=== PATIENT | female | born 1940 | race Caucasian/White ===

== ENCOUNTER 2016-10-19 19:19 | Emergency (ER) | payer MEDICARE, OTHER ==
[~2016-10-19] VITALS: Ht 167.6 cm; Wt 60.0 kg
[~2016-10-19 19:19] MED LIST: ATEN25TA PO; ESTR1PAT13 TD; GALA8TAB PO; IBUP-1827 PO; SERT20OR6 PO; [UNRECOGNIZED DRUG - CODE] PO
[2016-10-19 19:28] VITALS: BP 163/85; PULSE 67; RESP 14; O2SAT 99
--- NOTE | 2016-10-19 19:50 | ED.REPORT ---
HPI-General Illness Date of Service Oct 19, 2016 ED Provider: Dr. Fraser A demented 76 year old female with a history of Alzheimer's and HTN presents to the ED via EMS with seizure-like symptoms onset approximately 1-2 hours ago. Per son, the patient was eating salmon dinner when suddenly her head fell backward, her eyes rolled into her head, she stiffened up and began shaking. She began to fall and was caught by her son who gently lowered her to the ground. Per son, she was not confused when she woke up. She denies biting her tongue or having any incontinence or headache. Both the patient and her son deny any history of the patient having seizures. Nursing Notes Stated Complaint: POSS SEIZURE Chief Complaint: Seizure Nursing Notes Reviewed: Yes Allergies: Coded Allergies: No Known Allergies (Verified Allergy, Severe, 10/19/16) Scheduled Atenolol (Atenolol) 25 Mg Tablet 25 MG PO DAILY Cyanocobalamin (Vitamin B-12) 500 Mcg Tab 500 MCG PO BID Galantamine (Galantamine) 8 Mg Tablet 8 MG PO BID Sertraline HCl (Sertraline) 20 Mg/1 Ml Oral.conc 50 MG PO DAILY Scheduled PRN Ibuprofen (Ibuprofen) 600 Mg Tablet 600 MG PO TID PRN PRN For Pain Miscellaneous Medications Estradiol (Vivelle-Dot) 1 Each Patch.tdsw 1 EACH TD General Time Seen by MD: 19:50 Chief Complaint Seizure Hx Obtained From: Patient, Son, EMS Arrived By: Ambulance Sudden in Onset?: Yes Onset Occurred: 1 - 4 hours ago Symptom Duration: Duration unknown Severity: Current: Mild Severity: Maximum: Mild Recent Healthcare: No recent doctor visit Similar Sx Previous: No Past Medical History Past Medical History Alzheimer' disease Denies history of seizure. Reports: Hypertension Past Surgical History Reports: Appendectomy, Hysterectomy Smoking History Never Smoker Social History Alcohol Use: Denies alcohol use Review of Systems Denies incontinence. Denies biting her tongue. Full Review of Systems Constitutional: Denies: Chills, Fever Eyes: Denies: Blurred left, Blurred right Ears / Nose / Throat: Denies: Ear drainage left, Ear drainage right Respiratory: Denies: Non-productive cough Cardiovascular: Denies: Chest pain GI: Denies: Abdominal pain Female: Denies: Dysuria Skin: Denies Bruising Neurologic: Reports: Seizure, Denies: Abnormal movement, Bladder dysfunction, Bowel dysfunction, Change LOC , Headache, Slurred speech, Vision change, Weakness Psychiatric: Denies: Agitation, Change mental status Complete sys rev & neg: except as marked. Physical Exam normal exam Vital Signs Vital Signs Date Time Temp Pulse Resp B/P Pulse Ox O2 Delivery O2 Flow Rate FiO2 10/19/16 22:49 66 16 122/89 99 Room Air 10/19/16 22:03 66 16 122/89 99 Room Air 10/19/16 20:16 65 16 129/97 99 Room Air 10/19/16 19:28 36.7 67 14 163/85 99 Room Air Initial VS: Reviewed General/Constitutional: Awake, Alert Head / Eyes: Atraumatic, Normocephalic, PERRL, EOMI ENT: Atraumatic, Mucous membranes moist Respiratory / Chest: Atraumatic, Breath sounds NL, Breath sounds = bilat, No respiratory distress Cardiovascular: Heart rate NL, Regular rhythm, Heart sounds NL, No gallop, No murmurs, No rubs Abdomen: Atraumatic, No guarding, No rebound Upper Extremities Upper Extremity / MS: No swelling, No edema Skin: Atraumatic, Color NL, Warm, Dry Neurologic: Speech NL NIH stroke scale score is Zero, performed at 1950, 10/19/2016. Interpretation & Diagnostics Lab Results Interpretation Result Diagram: 10/19/16194310/19/161943 Test 10/19/16 19:44 10/19/16 21:55 White Blood Count 7.3th/mm3 (3.8-10.1) Red Blood Count 4.64mil/mm3 (3.90-5.20) Hemoglobin 13.9g/dL (12.0-15.6) Hematocrit 42.0% (35.0-46.0) Mean Corpuscular Volume 90.5fL (81-100) Mean Corpuscular Hemoglobin 30.0pg (27.0-35.0) Mean Corpuscular Hemoglobin Concent 33.1% (32.0-37.0) Red Cell Distribution Width 13.6% (12.3-15.4) Platelet Count 274bil/L (150-400) Neutrophils (%) (Auto) 69.4% (40-74) Lymphocytes (%) (Auto) 17.4% (14-46) Monocytes (%) (Auto) 9.6% (4-12) Eosinophils (%) (Auto) 2.5% (0-5) Basophils (%) (Auto) 0.8% (0-3) D-Dimer < 0.50mg/L FEU (<0.50) Sodium Level 140mEq/L (134-144) Potassium Level 3.9mEq/L (3.5-5.2) Chloride Level 101mEq/L (97-108) Carbon Dioxide Level 23mmol/L (18-29) Blood Urea Nitrogen 17mg/dL (8-27) Creatinine 1.00mg/dL (0.57-1.00) Estimat Glomerular Filtration Rate 77mL/min (>59) Glucose Level 77mg/dL (60-99) Lactic Acid Level 1.8mmol/L (0.4-2.0) Calcium Level 9.7mg/dL (8.5-10.1) Magnesium Level 2.2mg/dL (1.6-2.6) Total Bilirubin 0.3mg/dL (0.0-1.2) Aspartate Amino Transf (AST/SGOT) 19U/L (0-50) Alanine Aminotransferase (ALT/SGPT) 10U/L (0-32) Alkaline Phosphatase 68U/L (25-165) Pro-B-Type Natriuretic Peptide 250.7pg/mL (0-738) Total Protein 6.9g/dL (6.4-8.4) Albumin 4.1g/dL (3.4-5.0) Lipase 70U/L (13-60) Troponin T < 0.010ug/L (0.0-0.011) ECG Interpretation ECG Interpretation: Rate is 68. Sinus Rhythm. Time: 20:13 Interpreted by: ED physician CT Head Interpretation IMPRESSION: 1. No acute intracranial findings. 2. Mild findings likely associated with chronic microvascular ischemic changes. Dictated by: Alberta Mariano M.D. on 10/19/2016 at 20:59 Approved by: Alberta Mariano M.D. on 10/19/2016 at 21:01 Interpretation / Wet Read by: Interpret - Radiologist Re-Eval/Medical Decision Med Decision/Clinical Course Difficult to say exactly what happened. Perhaps she had a seizure and has since recovered. Syncope is also a possibility. Her examination was normal. She has dementia but beyond that had a normal neurologic exam. No signs of a stroke. Her EKG and troponins were reassuring. D-dimer is negative. CAT scan of her brain did not show anything acute. Labs are otherwise unremarkable. I recommended a hospital observation. Evidently Savannah does much better at home. Her dementia becomes an issue at nighttime and her would much rather have her at home. She also does not want to be admitted to the hospital. I do recommend close outpatient follow-up. If she has any further episodes or any new or worsening symptoms that bring her right back in. Otherwise I think she is going to do well. Source of Hx: Old records, EMS Time of Eval: 20:12 Re-Evaluation/Progress Note: Explained plan to perform blood and imaging tests. Time of Eval: 22:41 Re-Evaluation/Progress Note: Rechecked patient, explained test results, diagnosis, and plan for discharge. Patient understands and agrees with the plan. All questions addressed. Counseled Regarding: Diagnosis, Lab results, Need for follow-up, When/why to return to ED Discharge & Departure Primary Impression: Seizure Additional Impression: Syncope Syncope type: unspecified Qualified Code: R55 - Syncope and collapse Disposition: Home Patient Instructions: Non-epileptic Seizures (ED), Syncope (ED) Additional Instructions: It is difficult to say exactly what happened tonight. It certainly sounds that she could have had a seizure. She may have also had a syncopal episode as we discussed. Either way her EKG, blood work and CAT scan were all very reassuring. If she has another episode, bring her back to the emergency department. I would like to set up a follow-up with the primary care physician who may wish to discuss with you your EEG monitoring. Otherwise keep her on her usual medications. Return if any problems or any worsening symptoms. Read the aftercare instructions given. Referrals: Evelyn Sandoval (PCP) Keyur Attestation Portions of this note were transcribed by Akil Forrester. IDr. Fraser personally performed the history, physical exam and medical decision-making; I reviewed and confirmed the accuracy of the information in the transcribed note. Signed by: Keyur Romero, 10/20/2016, 0303. copies to: Evelyn Sandoval Todd P DO Oct 19, 2016 19:50 Akil Forrester Oct 19, 2016 20:16
[2016-10-19 19:57] LABS: BASOPHILS % (AUTO) 0.8 % (0-3); EOSINOPHILS % (AUTO) 2.5 % (0-5); MONOCYTES % (AUTO) 9.6 % (4-12); Mean Corpuscular Volume 90.5 fL (81-100); NEUTROPHILS % (AUTO) 69.4 % (40-74); Platelet Count 274 bil/L (150-400)
[2016-10-19 20:16] VITALS: BP 129/97; PULSE 65; RESP 16; O2SAT 99
[2016-10-19 20:39] LABS: TROPONIN T < 0.010 ug/L (0.0-0.011)
[2016-10-19 20:42] LABS: Lipase 70 U/L (13-60); Magnesium 2.2 mg/dL (1.6-2.6)
--- NOTE | 2016-10-19 21:03 | DRSVH ---
PROCEDURE: CT BRAIN WITHOUT CONTRAST ([id number]) INDICATIONS: SEIZURE TECHNIQUE: Noncontrast 4.5 mm thick angled axial sections acquired from the foramen magnum to the vertex, with c oronal reformats. COMPARISON: None. FINDINGS: Image quality: Excellent. CSF spaces: Basal cisterns are patent. No extra-axial fluid collections. The ventricles are symmet yaya in size and shape. Brain: No intracranial bleeds or masses. There is mild cerebral volume loss for age, with resultant ventricular and sulcal prominence. There are scattered periventricular and deep white matter chroni c small vessel ischemic changes. There is intracranial internal carotid artery atherosclerosis. Skull and face: Calvarium and visualized facial bones appear intact, without suspicious lesions. Sinuses: Visualized sinuses and mastoids are clear. IMPRESSION: 1. No acute intracranial findings. 2. Mild findings likely associated with chronic microvascular ischemic changes. Dictated by: Alberta Mariano M.D. on 10/19/2016 at 20:59 Approved by: Alberta Mariano M.D. on 10/19/2016 at 21:01
[2016-10-19 22:03] VITALS: BP 122/89; PULSE 66; RESP 16; O2SAT 99
[2016-10-19 22:49] VITALS: BP 122/89; PULSE 66; RESP 16; O2SAT 99
== END 2016-10-19 22:49 | disposition home or self-care (01) ==
LOC: EDBD 19:19 → SED 19:19
DX: R56.9 Unspecified convulsions (principal); R55 Syncope and collapse; I10 Essential (primary) hypertension; G30.9 Alzheimer's disease, unspecified